=== PATIENT | female | born 1985 | race Two or more races ===

== ENCOUNTER → 2024-01-12 | Outpatient (CLI) | payer MEDICAID, SELFPAY | END | disposition home or self-care (01) | LOC: SWHD 13:56 | PROVIDERS: PCP Nurse Practitioner; Referring Provider Nurse Practitioner; Visit Provider Student in an Organized Health Care Education/Training Program | DX: L98.499 Non-pressure chronic ulcer of skin of other sites with unspecified severity (principal); R10.9 Unspecified abdominal pain; R11.0 Nausea; E66.9 Obesity, unspecified; R60.0 Localized edema; S31.105A Unspecified open wound of abdominal wall, periumbilic region without penetration into peritoneal cavity, initial encounter; X58.XXXA Exposure to other specified factors, initial encounter | CPT/HCPCS: 99213; G0463 ==

== ENCOUNTER 2024-03-31 15:20 | Emergency (ER) | payer MEDICAID, SELFPAY ==
[2024-03-31 15:30] VITALS: BP 139/100; PULSE 75; RESP 18; TEMP 36.8; O2SAT 98; BMI 73.9
--- NOTE | 2024-03-31 15:44 | PD.EDRME ---
Rapid Medical Screening Exam RME Arrival date/time: 03/31/24 15:20 38-year-old morbidly obese female presents to the emergency department complaining of chills and drainage to umbilicus. Patient reports was following up with local wound clinic. Chief Complaint: Urogenital-Female Time Seen by Provider: 03/31/24 15:41 Vital signs: Vital Signs Temperature 98.2 F 03/31/24 15:30 Pulse Rate 75 03/31/24 15:30 Respiratory Rate 18 03/31/24 15:30 Blood Pressure 139/100 H 03/31/24 15:30 Pulse Oximetry (%) 98 03/31/24 15:30 Oxygen Delivery Method Room Air 03/31/24 15:30 Vital signs reviewed by provider: Yes
[2024-03-31 16:20] LABS: Basophils % (Auto) 0 % (0-2.5); Eosinophils # (Auto) 0.1 Thou/mm3 (0.0-0.5); Eosinophils % (Auto) 2 % (0-10); Hematocrit 43.3 % (36.0-46.0); Hemoglobin 14.6 g/dL (12.0-16.0); Immature Granulocytes % (Auto) 0 % (0-0); Immature Granulocytes Auto 0.02 Thou/mm3 (0.00-0.00); Lymphocytes # (Auto) 2.2 Thou/mm3 (1.0-4.8); Lymphocytes % (Auto) 29 % (10-50); Mean Corpuscular HGB Conc 33.7 g/dl (31.0-37.0); Mean Corpuscular Hemoglobin 30.2 pg (25.0-35.0); Mean Corpuscular Volume 90 fL (80-100); Monocytes # (Auto) 0.5 Thou/mm3 (0.0-0.8); Monocytes % (Auto) 6 % (0-12); Neutrophils # (Auto) 4.7 Thou/mm3 (1.8-7.7); Neutrophils % (Auto) 62 % (37-80); Nucleated Red Blood Cell % 0 /100 WBC (0); Platelet Count 207 Thou/mm3 (140-440); RDW Standard Deviation 41.6 fL (36.4-46.3); Red Blood Count 4.83 Miln/mm3 (4.00-5.20); White Blood Count 7.6 Thou/mm3 (3.6-11.0)
[2024-03-31 16:46] LABS: Alanine Aminotransferase 20 U/L (10-49); Albumin, Serum 4.7 gm/dL (3.5-5.0); Albumin/Globulin Ratio 1.5 (1.2-2.2); Alkaline Phosphatase 81 U/L (46-116); Anion Gap 8 (7-16); Aspartate Amino Transferase 36 U/L (0-34); BUN/Creatinine Ratio 10 Ratio (12-20); Bilirubin,Total 0.7 mg/dL (0.3-1.2); Blood Urea Nitrogen 7 mg/dL (9-23); Calcium 9.4 mg/dL (8.3-10.6); Calcium (Corrected) 9.4 mg/dL (8.5-10.1); Chloride 103 mMol/L (98-107); Creatinine (Component) 0.7 mg/dL (0.6-1.3); Estimated Creatinine Clearance 201.3 mL/min (>60); Globulin 3.1 gm/dL (2.3-3.5); Glucose 91 mg/dL (74-106); Osmolality,Calculated 275 (275-295); Potassium 3.7 mMol/L (3.4-5.1); Procalcitonin < 0.04 ng/ml (0.0-0.49); Sodium 139 mMol/L (136-145); Total Protein 7.8 gm/dL (5.7-8.2); eGFR > 60 See Note
--- NOTE | 2024-03-31 18:25 | XR_ITS ---
Examination: Pelvic ultrasound, transabdominal, complete Technique: Transabdominal ultrasound of the pelvis performed using grayscale imaging Date and time of exam: March 31, 2024 at 1901 hrs. Indications: Pelvic pain beginning one week ago Findings: Uterus 12.4 x 5.9 x 8.0 cm No uterine mass or intrauterine gestation Endometrial stripe 0.3 cm Ovaries obscured by bowel gas Impression: Limited study No uterine mass or intrauterine gestation
[2024-03-31 21:04] VITALS: BP 142/99; PULSE 78; RESP 18; TEMP 36.9; O2SAT 96
[2024-03-31] MEDS: TRIMETHOPRIM/SULFA 160/800 DS TABLET 1 TAB PO (21:51)
[2024-03-31 22:14] LABS: Collection Type, Urine Catheter; WBC,Urine 0 /hpf (0-5)
[2024-03-31 22:20] LABS: Bilirubin,Urine Negative (Negative); Blood,Urine Trace (Negative); Clarity,Urine Clear (Clear/Hazy); Color,Urine Colorless (Lt Yel-Yel); Culture Indicated,Urine Not Indicated; Glucose, Urine Negative (Negative); Ketones,Urine Negative (Negative); Leukocyte Esterase,Urine Negative (Negative); Nitrite,Urine Negative (Negative); PH,Urine 6.5 (5.0-7.0); Protein,Urine Negative (Neg - Trace); RBC,Urine < 1 /hpf (0-3); Specific Gravity,Urine 1.004 (1.001-1.035); Squamous Epithelial Cell,Urine 1 /hpf (0-5); Urobilinogen,Urine Negative mg/dL (0.0-1.0)
--- NOTE | 2024-03-31 22:41 | PD.EDFMALE ---
ED Female Urogenital RME/HPI General Chief complaint: Urogenital-Female Stated complaint: DISCHARGE / PAIN FROM [employer]; PELVIC PAIN Time Seen by Provider: 03/31/24 15:41 Source: patient Arrival date/time: 03/31/24 15:20 Mode of arrival: ambulatory Limitations: no limitations RME / HPI RME / HPI Narrative: 03/31/24 15:20 38-year-old morbidly obese female presents to the emergency department complaining of chills and drainage to umbilicus. Patient reports was following up with local wound clinic. DR SANTOS MAIN ED EVALUATION: 38-year-old female who presents to the emergency department via private auto for complaints of draining from umbilicus region. Denies any other associated symptoms. Denies any pain overall. History includes umbilical hernia, and hypertension. Review of the record shows she is followed by Dr. Shankar at [facility], last seen on 01/12/24 relating to persistent purulent abdominal discharge and intermittent lower abdominal pain and nausea since of June of this year. She has previously taken Bactrim for this twice. Related Data Previous Rx's ?Medication ?Instructions ?Recorded hydrocodone 5 mg-acetaminophen 325 1 tab PO Q4H PRN pain #10 tabs 01/12/21 mg tablet ibuprofen 800 mg tablet 800 mg PO Q8H PRN pain #10 tabs 01/12/21 sulfamethoxazole 800 1 tab PO BID #20 tabs 03/31/24 mg-trimethoprim 160 mg tablet (Bactrim DS) Allergies Allergy/AdvReac Type Severity Reaction Status Date / Time No Known Allergies Allergy Verified 03/31/24 15:22 Review of Systems Review of Systems Systems Reviewed: All systems reviewed, normal except as documented Past Medical History Past Medical History CARDIAC: Negative Cardiac Disorders or Congestive Heart Failure RESPIRATORY: Negative Chronic Obstructive Pulmonary Disease (COPD) or Asthma GENITOURINARY: Negative Renal Disease ENDOCRINE: Negative Diabetes Mellitus Type 1 or Diabetes Mellitus Type 2 HEMATOLOGIC: Negative Sickle Cell Disease PSYCHO/SOCIAL: Positive Depression and Anxiety Social History SMOKING STATUS: Never smoker ED Exam Narrative Physical exam: GENERAL APPEARANCE: alert and oriented x 4, well-developed, well-nourished, no acute distress VITALS: All vitals were reviewed and the pulse ox is 98% on room air, which is normal according to my interpretation. HEENT: Normocephalic, atraumatic; pupils equal, round, reactive to light; EOMI; mucous membranes pink, moist; oropharynx clear NECK: Supple LUNGS: CTABL; no wheezes, no rales, no rhonchi HEART: Regular rate, regular rhythm; normal S1, S2; no murmurs ABDOMEN: non distended; normal BS; soft, no tenderness, no guarding, no rebound; no masses, no organomegaly, minimal serosanguinous drainage swabbed from umbilicus, no hernia BACK: no CVA tenderness EXTREMITIES: atraumatic; no edema NEUROLOGIC: awake; alert and oriented x4; cranial nerves II-XII grossly intact; no focal sensory or motor deficits PSYCHIATRIC: appropriate mood and affect SKIN: warm, dry, normal color; no rashes General Limitations: Present no limitations Course Quality Measures none Orders Category Date Time Status US pelvic complete Stat Exams 03/31/24 18:25 Completed Blood Culture (Lab) Stat Lab 03/31/24 16:01 Completed CBC Stat Lab 03/31/24 15:58 Completed CMP [Comprehensive Metabolic Panel] Stat Lab 03/31/24 15:58 Completed Lactate (Lactic Acid) Stat Lab 03/31/24 15:58 Completed Procalcitonin Stat Lab 03/31/24 15:58 Completed UA, C/S IF [Urinalysis, C/S if Indicated] Stat Lab 03/31/24 21:50 Completed Trimethoprim/Sulfa 160/800 Ds [Bactrim Ds] Med 03/31/24 21:34 Discontinued 1 tab PO X1 ONE Vital Signs Vital signs: Vital Signs Temperature 98.2 F 03/31/24 15:30 Pulse Rate 75 03/31/24 15:30 Respiratory Rate 18 03/31/24 15:30 Blood Pressure 139/100 H 03/31/24 15:30 Pulse Oximetry (%) 98 03/31/24 15:30 Oxygen Delivery Method Room Air 03/31/24 15:30 Urogenital - Female MDM Narrative MDM Narrative:: Scribe Attestation: I, Remigio Strauss, german scribing for and in the presence of Dr. Santos. Provider Notation: Although this document has been carefully reviewed, there may still be some phonetic and other typographical errors. These errors are purely grammatical due to imperfections in the software program and should not be construed in any way to compromise the substance of the patient's medical care during this visit. Patient data External records reviewed:: [facility] previous records Clinical information provided by:: patient Social determinants that could affect healthcare access:: none Patient has the following chronic illnesses:: Depression, migraines, umbilical hernia, hypertension How is presenting disease/condition affected by chronic disease/condition?: exacerbated by Evaluation data The following diagnostics were reviewed and interpreted by me:: lab results and radiology exam(s) Lab and/or radiology exams considered but not ordered:: None Interpretation Summary: I personally reviewed and interpreted an US pelvic complete on this patient. Films were reviewed. I agree with the radiologist's interpretation. Examination: Pelvic ultrasound, transabdominal, complete Date and time of exam: March 31, 2024 at 1901 hrs. Indications: Pelvic pain beginning one week ago Findings: Uterus 12.4 x 5.9 x 8.0 cm No uterine mass or intrauterine gestation Endometrial stripe 0.3 cm Ovaries obscured by bowel gas Impression: Limited study No uterine mass or intrauterine gestation Dictated By: Alber Mayberry MD Medications / Prescriptions Medications or Prescriptions considered but not ordered:: None Medication administrations:: Medication Administration History Discontinued Medications Trimethoprim/Sulfamethoxazole (Trimethoprim/Sulfa 160/800 Ds Tablet) 1 tab PO X1 ONE Stop: 03/31/24 21:35 Last Admin: 03/31/24 21:51 Dose: 1 tab Documented By: MP As above Consultations Consultation(s) initiated? (list below): No Diagnosis Urogenital Female Differential Diagnosis: urinary tract infection, bacterial vaginosis, ovarian cyst and vaginitis Most likely diagnosis given after review of the tests above:: Omphalitis in adult Admission Indicated Admission indicated?: not indicated Admission Request Was there a request for admission?: No Disposition Plan Disposition Plan: Discharge Discharge Attestation Discharge Attestation: The patient and all family members were given an opportunity to ask questions and understood the discharge instructions. Discharge instructions specifically effects, indications for sooner follow up or return to the emergency department, and the expected course of current diagnosis. Patient condition: Stable Discharge Plan Plan Patient Disposition: HOME (Self Care) Prescriptions/Referrals Prescriptions/Med Rec: New sulfamethoxazole-trimethoprim [Bactrim DS] 800-160 mg tablet 1 tab PO BID Qty: 20 0RF No Action hydrocodone-acetaminophen 5-325 mg tablet 1 tab PO Q4H MDD 3 PRN (Reason: pain) Qty: 10 0RF ibuprofen 800 mg tablet 800 mg PO Q8H PRN (Reason: pain) Qty: 10 0RF Referrals: Edgard Malagon MD [Primary Care Provider] - In 1 week Problem List Clinical Impression: Omphalitis in adult Patient/Caregiver Discharge Instructions Education Materials: ED Wound Care Print Language: Dominican Stand Alone Forms: Pretty Award Info., Patient Portal Info Letter
[2024-03-31 23:58] VITALS: BP 158/90; PULSE 63; RESP 18; O2SAT 98
== END 2024-04-01 00:01 | disposition home or self-care (01) ==
PROVIDERS: Emergency Provider Emergency Medicine; PCP Family Medicine
DX: L08.82 Omphalitis not of newborn (principal); I10 Essential (primary) hypertension; K42.9 Umbilical hernia without obstruction or gangrene; F32.A Depression, unspecified
CPT/HCPCS: 36415; 76856; 80053; 81001; 83605; 84145; 85025; 87040; 99284; A9270

== ENCOUNTER → 2024-10-04 | Outpatient (CLI) | payer MEDICAID, SELFPAY | END | disposition home or self-care (01) | LOC: SWHD 13:56 | PROVIDERS: PCP Family Medicine; Referring Provider Family Medicine; Visit Provider Student in an Organized Health Care Education/Training Program | DX: L98.491 Non-pressure chronic ulcer of skin of other sites limited to breakdown of skin (principal); E66.01 Morbid (severe) obesity due to excess calories; K42.9 Umbilical hernia without obstruction or gangrene; I10 Essential (primary) hypertension; K76.89 Other specified diseases of liver | CPT/HCPCS: 99214; G0463 ==